=== PATIENT | male | born 2000 | race Caucasian/White ===

== ENCOUNTER 2022-06-30 15:43 | Emergency (ER) | payer MEDICAID, SELFPAY ==
[2022-06-30 15:45] VITALS: BP 144/83; PULSE 92; RESP 16; TEMP 37.1; O2SAT 99
--- NOTE | 2022-06-30 15:48 | DI.RAD.S_ITS ---
PROCEDURE: XR ELBOW RT MIN 3V INDICATIONS: fall, swelling TECHNIQUE: 3 views of the elbow were acquired. COMPARISON: None. FINDINGS: Bones: There is a fracture involving the proximal right ulna with distraction of the olecranon process. Radiocapitellar articulation is maintained. No suspicious osseous lesion. Soft tissues: Small elbow joint effusion. No suspicious soft tissue calcifications. Moderate overlying soft tissue swelling of the posterior elbow. Concurrent olecranon bursitis not excluded. IMPRESSION: Transverse fracture of the proximal right ulna with intra-articular extension to the humeral ulnar joint. Moderate overlying soft tissue swelling and small joint effusion. Dictated by: Randy Baig M.D. on 06/30/2022 at 16:36 Approved by: Randy Baig M.D. on 06/30/2022 at 16:38
[2022-06-30 16:18] VITALS: BMI 26.4
--- NOTE | 2022-06-30 16:18 | ED_ITS ---
HPI - Extremity Injury (Upper) <WILLA Abbasi - Last Filed: 06/30/22 18:15> General Chief Complaint: Extremity Injury, Upper Stated Complaint: R elbow inj Time Seen by Provider: 06/30/22 16:18 Source: patient Mode of arrival: Ambulatory History of Present Illness HPI narrative: This is a 22-year-old male presents emergency department after he jumped over a tennis net and states that he fell onto his left elbow and caused a lot of pain. He endorses some mild numbness and tingling is 4th and 5th digits. States that he is not able to fully extend his elbow medicine most painful movement but he is able to flex slightly. He has pain on the posterior aspect of his elbow over the olecranon process Related Data Previous Rx's Medication Instructions Recorded hydrocodone 5 mg-acetaminophen 325 1 tab PO TID PRN pain #14 tabs 06/30/22 mg tablet ibuprofen 600 mg tablet 600 mg PO Q6H PRN fever or pain 06/30/22 #30 tabs Allergies Allergy/AdvReac Type Severity Reaction Status Date / Time No Known Drug Allergies Allergy Verified 06/30/22 15:48 Review of Systems <WILLA Abbasi - Last Filed: 06/30/22 18:15> Review of Systems ROS Unobtainable: All systems reviewed & are unremarkable except as noted in HPI and below Patient History <WILLA Abbasi - Last Filed: 06/30/22 18:15> Social History Smoking Status: Current every day smoker Exam <WILLA Abbasi - Last Filed: 06/30/22 18:15> Narrative Exam Narrative: MSK: Patient is right arm has no tenderness along, tenderness over the olecranon process, grossly edematous, firm to palpation without fluctuance patient is not able to fully extend, he has brisk cap refill and 2+ radial pulse, warm fingertips. No proximal radial head tenderness, no wrist pain, no shoulder pain Initial Vital Signs Initial Vital Signs: Vital Signs Temperature 98.8 F 06/30/22 15:45 Pulse Rate 92 H 06/30/22 15:45 Respiratory Rate 16 06/30/22 15:45 Blood Pressure 144/83 H 06/30/22 15:45 Pulse Oximetry 99 06/30/22 15:45 Oxygen Delivery Method Room Air 06/30/22 15:45 <Red Nolasco DO - Last Filed: 07/01/22 07:09> Initial Vital Signs Initial Vital Signs: Vital Signs Temperature 98.8 F 06/30/22 15:45 Pulse Rate 92 H 06/30/22 15:45 Respiratory Rate 16 06/30/22 15:45 Blood Pressure 144/83 H 06/30/22 15:45 Pulse Oximetry 99 06/30/22 15:45 Oxygen Delivery Method Room Air 06/30/22 15:45 Procedures <WILLA Abbasi - Last Filed: 06/30/22 18:15> Orthopedic Splinting/Casting Injury #1: Side: right Upper Extremity Injury Location: elbow Upper Extremity Immobilizer: sling/shoulder immobilizer and posterior splint Post splinting neuro exam: intact Post splinting vascular exam: intact Placed by: Provider Course <WILLA Abbasi - Last Filed: 06/30/22 18:15> Orders Ordered: Discontinued Medications Hydrocodone Bitart/Acetaminophen (Hydrocodone/Acet 5/325 Tablet) 1 tab PO NOW ONE Stop: 06/30/22 16:27 Last Admin: 06/30/22 16:58 Dose: 1 tab Documented By: LIZZY Pendletonitracin (Bacitracin Oint 0.9 Gm Pckt) 1 applic TOP NOW ONE Stop: 06/30/22 16:18 Last Admin: 06/30/22 16:58 Dose: 1 applic Documented By: LIZZY Vital Signs Vital signs: Vital Signs - 8 hr 06/30/22 15:45 Temperature 98.8 F Pulse Rate 92 H Respiratory Rate 16 Blood Pressure 144/83 H Pulse Oximetry 99 Oxygen Delivery Method Room Air <Red Nolasco DO - Last Filed: 07/01/22 07:09> Orders Ordered: Discontinued Medications Hydrocodone Bitart/Acetaminophen (Hydrocodone/Acet 5/325 Tablet) 1 tab PO NOW ONE Stop: 06/30/22 16:27 Last Admin: 06/30/22 16:58 Dose: 1 tab Documented By: LIZZY Bacitracin (Bacitracin Oint 0.9 Gm Pckt) 1 applic TOP NOW ONE Stop: 06/30/22 16:18 Last Admin: 06/30/22 16:58 Dose: 1 applic Documented By: LIZZY Vital Signs Vital signs: Vital Signs - 8 hr 06/30/22 15:45 Temperature 98.8 F Pulse Rate 92 H Respiratory Rate 16 Blood Pressure 144/83 H Pulse Oximetry 99 Oxygen Delivery Method Room Air MDM - Extremity Injury (Upper) <Pattie Morse, [facility] - Last Filed: 06/30/22 18:15> Imaging Data Extremity x-ray #1: Radiologist's Impression: PROCEDURE:? XR ELBOW RT MIN 3V ? INDICATIONS:? fall, swelling ? TECHNIQUE:? 3 views of the elbow were acquired.? ? COMPARISON:? None. ? FINDINGS:? ? Bones:? There is a fracture involving the proximal right ulna with distraction of the olecranon process.? Radiocapitellar articulation is maintained.? No suspicious osseous lesion. ? Soft tissues:? Small elbow joint effusion.? No suspicious soft tissue calcifications.? Moderate overlying soft tissue swelling of the posterior elbow.? Concurrent olecranon bursitis not excluded. ? ? IMPRESSION:? Transverse fracture of the proximal right ulna with intra-articular extension to the humeral ulnar joint.? Moderate overlying soft tissue swelling and small joint effusion. ? ? Dictated by: Randy Baig M.D. on 06/30/2022 at 16:36 ? ? Approved by: Randy Baig M.D. on 06/30/2022 at 16:38 ? MDM Narrative Medical decision making narrative: Chief Complaint: Elbow injury Independent historian: Patient Multiple etiologies for patient's complaint considered including, but not limited to: Olecranon fracture, bursa rupture, tendon/ligamental injury, vascular injury, radius/ulna fracture, humeral head fracture I have independently reviewed the patient's vital signs and nursing notes as well as prior records if available. My interpretation of imaging: X-ray of the right elbow is positive for displaced olecranon fracture Consultations: Consulted with Dr. Olson from Orthopedics about patient's right olecranon fracture, he recommends posterior long-arm splint, follow-up in the clinic next week and call for an appointment tomorrow for follow-up. Patient is right arm was splinted in a long posterior splint, tolerated this well, CSM is intact distally afterwards. He is in partial flexion, wearing a sling, was comfortable at time of discharge. Pain control, and surgery for next week. Patient is self-pay for insurance and is uninsured, Dr. Olson is aware of this and surgery will occur at the hospital tomorrow. Dr. Olson call back to say that patient can have surgery tomorrow at 14:00 and this has been arranged through the operating room. There was an opening in the surgery schedule. Patient will arrived for check-in at 12 noon and be available off [facility] and in [facility] by 09:00 in case there was an earlier surgery time. Patient was prescribed hydrocodone and ibuprofen for his pain understands to be NPO after midnight. Social considerations that may affect disposition: none Questions are addressed and there is agreement with the plan and for follow-up. I consulted with the ED attending physician Dr. Nolasco as needed for higher level of care considerations and they were available for discussion and recommendations regarding plan of care and diagnostic testing. Patient is ap propriate for outpatient management. Discharge Plan Departure Patient Disposition: Home Clinical Impression: Closed olecranon fracture Qualifiers: Encounter type: initial encounter Laterality: right Qualified Code(s): S52.021A - Displaced fracture of olecranon process without intraarticular extension of right ulna, initial encounter for closed fracture Instructions: Elbow Fracture Activity Restrictions/Additional Instructions: *You have been diagnosed with a right olecranon fracture. Sorry for your injury, have called in hydrocodone for as needed pain relief at [facility]. Try and keep this elevated as best as able, ice it, there was an opening in the operating room tomorrow. Please do not eat any food after midnight, coming to town early tomorrow morning around 9, they may call you for an earlier check in but currently your check-in time to the hospitalist 12:00. Surgery is scheduled at 14:00, they will likely call you sooner than this and be ready for you. I wish you the best, sorry about your injury. *What to do: *Please continue to take your regular medications as directed. [x ] New medication prescriptions sent to your pharmacy: [[facility] ] [ ] New medication written as a paper prescription [ ] No new medications given *Please call and schedule follow up with your primary care provider in 2-3 days, at least for an update. Let them know you were seen in the Emergency Department for the above problem. We will electronically transmit a record of today's note if your PCP or specialist is in our system. *If you do not have a primary care provider please contact [phone] to establish care with one of the [facility] primary care providers. *Return to the Emergency Department for worsening symptoms, inability to keep liquids down, fever greater than 101F, chills, or other concerning symptom. Prescriptions: New hydrocodone-acetaminophen 5-325 mg tablet 1 tab PO TID PRN (Reason: pain) Qty: 14 0RF ibuprofen 600 mg tablet 600 mg PO Q6H PRN (Reason: fever or pain) Qty: 30 0RF Referrals: [facility] [Provider Group] Mariaa Olson MD [Physician] - (Call the office 07/01 and make an appointment for next week) Stand Alone Forms: Patient Portal/API <Red Nolasco DO - Last Filed: 07/01/22 07:09> [facility] I was immediately available in the department for consultation. This documentation has been reviewed and I agree with assessment and plan. Supervised by Red Nolasco DO
[2022-06-30] MEDS: HYDROCODONE/ACET 5/325 TABLET 1 TAB PO (16:58)
[2022-06-30] MEDS: BACITRACIN OINT 0.9 GM PCKT 1 APPLIC TOP (16:58)
== END 2022-06-30 17:08 | disposition home or self-care (01) ==
PROVIDERS: Emergency Provider Nurse Practitioner Critical Care Medicine
DX: S52.021A Displaced fracture of olecranon process without intraarticular extension of right ulna, initial encounter for closed fracture (principal); W18.30XA Fall on same level, unspecified, initial encounter
CPT/HCPCS: 29105; 73080; 99283; 99284

== ENCOUNTER 2022-07-01 11:50 | Day surgery (SDC) | payer MEDICAID, SELFPAY ==
[2022-07-01] VITALS (9 sets, daily range): BP systolic 111–140; BP diastolic 63–91; PULSE 64–86; RESP 15–19; TEMP 36.1–36.8; O2SAT 91–100; BMI 26.4
[2022-07-01] MEDS: LACTATED RINGERS 1,000 ML 42 ML IV ×2 (12:39→15:20)
[2022-07-01] MEDS: CEFAZOLIN 2 GM/100 ML PREMIX 100 ML IV (14:46)
--- NOTE | 2022-07-01 14:58 | PM.HP.1 ---
History of Present Illness History of Present Illness Date Patient Seen: 07/01/22 Time Patient Seen: 13:40 Date of Onset of Symptoms: 06/30/22 Chief complaint: Right ORIF Elbow Fx Narrative: Mr. Watters is a 22 yo M right hand dominant fell yesterday when jumping over a tennis net and landed on his right elbow. He was seen in the ED for inability to move his right elbow due to pain. Orthopedic service was consulted. Patient was scheduled urgently for ORIF today. [facility] Social History household members: family Smoking Status: Current every day smoker alcohol intake: current Meds Home Medications and Allergies Home Medications Medication Instructions Recorded Confirmed Type hydrocodone 5 mg-acetaminophen 325 1 tab PO TID PRN pain #14 tabs 06/30/22 07/01/22 Rx mg tablet ibuprofen 600 mg tablet 600 mg PO Q6H PRN fever or pain 06/30/22 07/01/22 Rx #30 tabs Allergies Allergy/AdvReac Type Severity Reaction Status Date / Time No Known Drug Allergies Allergy Verified 07/01/22 12:11 Review of Systems Review of Systems ROS: Yes All systems reviewed with the patient and are negative except as otherwise documented Exam Vital Signs (past 8 hours): - 07/01/22 12:22 Temperature 98.3 F Pulse Rate 86 Respiratory Rate 16 Blood Pressure 133/72 Pulse Oximetry 100 Oxygen Delivery Method Room Air Oxygen Delivery Method Room Air Extrem Other: right arm in splint, after splint removal, superficial abrasion over elbow was seen, no deep wound or deep compartment involvement. Neurovascularly intact. Unable to move elbow due to pain. Assessment & Plan Assessment & Plan narrative: Patient has closed right olecranon fx. I discussed treatment options. Risks for surgery include but not limited to bleeding, infection, nerve/blood vessel injury, need for additional procedure, elbow stiffness, hardware complications. Patient understands and would like to proceed with surgery. I scheduled him for ORIF right olecranon.
--- NOTE | 2022-07-01 15:13 | SUR.OPER ---
Lateral on a mcgee bag, head on pillow, gel axillary roll in place, bottom leg bent with gel pad under knee to foot, upper leg straight and supported with pillows. Upper arm supported by short padded arm rest, left arm secured on padded arm board. Safety belt at hip, tape over blanket lower legs.
[2022-07-01] MEDS: BUPIVACAINE 0.5% (PF) 30 ML, EPINEPHrine 0.15 MG INJ (15:20)
--- NOTE | 2022-07-01 17:13 | PM.OP.1 ---
Operative Date/Time/Diagnoses Date of procedure: 07/01/22 Time of procedure: 14:50 Pre-op diagnosis: 1. right olecranon fracture Post-op diagnosis: same Procedure & Clinicians Procedure: Right olecranon open reduction and internal fixation Same procedure as scheduled: Yes Indications: Mr. Watters sustained a traumatic right olecranon fracture that is grossly displaced. He was unable to move his right elbow due to pain. Surgeon: Mariaa Olson Click Yes if Unassisted: Yes Anesthesia Type: General Operative Notes Closure Type: primary Specimen(s): none sent Prosthetic devices, grafts, tissues, transplants, or devices: Kennedy [employer]hew Rolan olecranon plate Estimated Blood Loss (mL): 5 Blood products transfused: none Tourniquet time (min): 108 Procedure in detail: After patient was consented of risks and benefits of surgery, informed consent was obtained and placed in the chart. Patient was taken to the operating room. Prophylactic antibiotic was given less than half our prior to skin incision. A tourniquet was placed on patient's right upper arm. Patient's left arm was prepped and draped in sterile fashion. Time-out was performed at this time. Patient's left arm was elevated for 1 min the tourniquet was inflated to 250 mm Hg. Marking pen was used to brinda out a 6 in incision over the right olecranon. The incision was made from proximal to the olecranon to distal down the arm away from the ulnar aspect of the elbow to avoid the ulnar nerve. Using combination of scalpel and Metzenbaum scissor, the olecranon from its tip all the way down to the proximal 3rd of the shaft was exposed. Fracture hematoma was evacuated from the elbow joint along with fragments of bone along with cartilage. The distal humerus and the olecranon articulating surface was inspected there are small area of cartilaginous damage from the trauma. Small curette was used to remove any loose bone hematoma on the fracture surface along with fragments of cartilage. Next [id number] reduction clamp was used to reduce the fracture. And good bony apposition was able to be achieved using the [id number] clamp. The triceps attachment was split in order to expose the proximal tip of the olecranon for plate fixation. Periosteal elevator was used to remove the periosteum along the shaft of the ulna also for the purpose of plate fixation. A Kennedy [employer] Nephew olecranon plate was placed onto the olecranon along the shaft and visualized with portable C-arm. The fracture was well reduced in an anatomic position and the plate was in appropriate position for stabilization of the fracture. Distal shaft of the ulna was drilled and filled with fully-threaded cortical screw after measuring with depth gauge. The 3 cortical screws were used. Two fully-threaded cortical screws were placed from the tip of the olecranon down the shaft after drilling and measuring with depth gauge. A 55 mm and a 50 mm fully-threaded cortical screw were used for the proximal tip screw placement. After that all hardware was placed, the bone reduction clamp was reduced. The fracture was maintained its anatomic reduction and hardware was in appropriate position without any joint compromise. The final imaging was printed out and kept with patient's medical records. The wound was irrigated with sterile normal saline. Periosteum and muscle fascia was closed over the hardware using 0 Vicryl suture. Subcutaneous tissue was closed with 2-0 Vicryl. Skin was closed with 2-0 nylon suture. A sterile dressing was applied the patient's left elbow. The tourniquet was deflated at this time. Patient was woken up from anesthesia and transferred to recovery room in stable condition. Patient tolerated the procedure well and there were no complications estimated blood loss is 5 cc. Patient will be discharged today to home. Complications: none Post-operative Condition: stable Disposition: PACU Plan for aftercare: Discharge to home
[2022-07-01] MEDS: OXYCODONE/ACETAMINOPHEN 5/325 TABLET 1 TAB PO (17:52)
== END 2022-07-01 18:44 | disposition home or self-care (01) ==
PROVIDERS: Referring Provider Orthopaedic Surgery Orthopaedic Surgery of the Spine; Visit Provider Orthopaedic Surgery Orthopaedic Surgery of the Spine
PROC: 0RSL04Z Reposition Right Elbow Joint with Internal Fixation Device, Open Approach (ICD-10-PCS; CPT 24685; principal; 2022-07-01 14:00)
DX: S52.021A Displaced fracture of olecranon process without intraarticular extension of right ulna, initial encounter for closed fracture (principal); Y93.73 Activity, racquet and hand sports; W01.198A Fall on same level from slipping, tripping and stumbling with subsequent striking against other object, initial encounter; Y92.312 Tennis court as the place of occurrence of the external cause
CPT/HCPCS: 24685; J0171; J0690; J1100; J2250; J2405; J2704; J3010

== ENCOUNTER 2022-07-05 13:40 | Emergency (ER) | payer MEDICAID, SELFPAY ==
[2022-07-05 13:48] VITALS: BP 145/82; PULSE 68; RESP 16; TEMP 36.9; O2SAT 99; BMI 26.4
--- NOTE | 2022-07-05 15:56 | ED_ITS ---
HPI - Recheck/Abnormal Lab/Rx <Shon Zacarias PA-C - Last Filed: 07/05/22 16:02> General Chief Complaint: Recheck/Abnormal Lab/Rx Stated Complaint: post surgery, stitches popped, needs redone Time Seen by Provider: 07/05/22 14:23 Source: patient Mode of arrival: Ambulatory History of Present Illness HPI narrative: 22-year-old male status post a recent right elbow ORIF performed by Ortho Dr. Olson on 07/01/2022 presents to the ED for a wound recheck of the surgical incision. Patient noted that he was having some serosanguineous oozing from a particular spot in the surgical incision. Patient spoke with Dr. Gonzalez on the phone who recommended that he be evaluated in the ED. patient denies fever, chills, nausea, vomiting. Patient denies increased pain, swelling, warmth, redness at the site of the incision. Patient denies numbness, tingling, weakness. Related Data Previous Rx's Medication Instructions Recorded hydrocodone 5 mg-acetaminophen 325 1 tab PO TID PRN pain #14 tabs 06/30/22 mg tablet ibuprofen 600 mg tablet 600 mg PO Q6H PRN fever or pain 06/30/22 #30 tabs oxycodone 5 mg tablet 5 mg PO Q4H PRN pain #30 tabs 07/01/22 Allergies Allergy/AdvReac Type Severity Reaction Status Date / Time No Known Drug Allergies Allergy Verified 07/01/22 12:11 Review of Systems <Shon Zacarias PA-C - Last Filed: 07/05/22 16:02> Review of Systems ROS Unobtainable: All systems reviewed & are unremarkable except as noted in HPI and below Constitutional Constitutional: Denies chills, Denies fatigue, Denies fever(s), Denies frequent falls, Denies lethargy and Denies weakness Eyes Eyes: Denies change in vision, Denies eye discharge, Denies irritation and Denies loss of vision ENT Ears, Nose, Mouth, and Throat: Denies change in voice, Denies dizziness, Denies neck pain, Denies sore throat and Denies throat swelling Cardiovascular Cardiovascular: Denies chest pain, Denies irregular heart rhythm, Denies lightheadedness, Denies palpitations, Denies dyspnea, Denies dyspnea on exertion and Denies orthopnea Respiratory Respiratory: Denies cough, Denies dyspnea, Denies dyspnea on exertion and Denies wheezing Gastrointestinal Gastrointestinal: Denies abdominal pain, Denies change in bowel habits, Denies diarrhea, Denies nausea and Denies vomiting Genitourinary Genitourinary: Denies hematuria, Denies flank pain, Denies urinary incontinence and Denies urinary urgency Musculoskeletal Musculoskeletal: Denies back pain, Denies muscle weakness, Denies neck pain, Denies numbness and Denies tingling Integumentary/Breasts Skin/Breast: Denies pruritus, Denies erythema, Denies rash and Denies wounds Comments: Discharge from surgical incision on right elbow Neurologic Neurologic: Denies behavioral changes, Denies confusion, Denies dizziness, Denies frequent falls, Denies loss of vision, Denies numbness, Denies tingling and Denies weakness Psychiatric Psychiatric: Denies anxiety, Denies behavioral changes, Denies confusion, Denies depression, Denies homicidal ideation and Denies suicidal ideation Endocrine Endocrine: Denies fatigue, Denies flushing and Denies palpitations Hematologic/Lymphatic Hematologic/Lymphatic: Denies easy bruising Allergic/Immunologic Allergic/Immunologic: Denies urticaria, Denies throat swelling and Denies wheezing Patient History <Shon Zacarias PA-C - Last Filed: 07/05/22 16:02> Social History household members: family Smoking Status: Current every day smoker alcohol intake: current Smoking Status: Current every day smoker alcohol intake frequency: holidays/special occasions only Substance Use Type: marijuana Exam <Shon Zacarias PA-C - Last Filed: 07/05/22 16:02> Narrative Exam Narrative: Const General:?cooperative, healthy appearing and comfortable [facility] Head:?normal to inspection Ears:?hearing grossly normal bilaterally Nose:?external nose normal Face and sinus:?normal facial exam and sinuses nontender Mouth:?oral mucosae normal Throat:?posterior oropharynx normal Eyes General:?appearance normal, both eyes and all related structures Neck Neck:?normal visual inspection and no lymphadenopathy noted Resp Effort & Inspection:?normal respiratory effort Auscultation:?clear to auscultation bilaterally Cardio Rate:?regular rate Rhythm:?regular rhythm Integumentary There is a small amount of serosanguineous oozing between 2 sutures that are spaced a little farther apart than the other sutures. Surgical incision appears to be otherwise healing well with no signs of infection including erythema, warmth, swelling, tenderness to touch. There is good range of motion. Strength and sensation is intact.Patient appears well neurovascularly intact. Neuro General:?patient alert, patient awake and patient oriented x3 Initial Vital Signs Initial Vital Signs: Vital Signs Temperature 98.4 F 07/05/22 13:48 Pulse Rate 68 07/05/22 13:48 Respiratory Rate 16 07/05/22 13:48 Blood Pressure 145/82 H 07/05/22 13:48 Pulse Oximetry 99 07/05/22 13:48 Oxygen Delivery Method Room Air 07/05/22 13:48 <Michael Higginbotham MD - Last Filed: 07/11/22 14:37> Initial Vital Signs Initial Vital Signs: Vital Signs Temperature 98.4 F 07/05/22 13:48 Pulse Rate 68 07/05/22 13:48 Respiratory Rate 16 07/05/22 13:48 Blood Pressure 145/82 H 07/05/22 13:48 Pulse Oximetry 99 07/05/22 13:48 Oxygen Delivery Method Room Air 07/05/22 13:48 Course <Shon Zacarias PA-C - Last Filed: 07/05/22 16:02> Vital Signs Vital signs: Vital Signs - 8 hr 07/05/22 13:48 Temperature 98.4 F Pulse Rate 68 Respiratory Rate 16 Blood Pressure 145/82 H Pulse Oximetry 99 Oxygen Delivery Method Room Air <Michael Higginbotham MD - Last Filed: 07/11/22 14:37> Vital Signs Vital signs: Vital Signs - 8 hr 07/05/22 13:48 Temperature 98.4 F Pulse Rate 68 Respiratory Rate 16 Blood Pressure 145/82 H Pulse Oximetry 99 Oxygen Delivery Method Room Air MDM - Recheck/Abnormal Lab/Rx <Shon Zacarias PA-C - Last Filed: 07/05/22 16:02> MDM Narrative Medical decision making narrative: 22-year-old male status post a recent right elbow ORIF performed by Liat Olson on 07/01/2022 presents to the ED for a wound recheck of the surgical incision. There appears to be a small amount of serosanguineous oozing between 2 sutures that appear to be a little bit more further apart than the other sutures. The wound appears to be healing well with no signs of infection including erythema, warmth, swelling, pain. Reassured patient that he is having a little bit of puckering between those 2 sutures which is causing it to ooze. Counseled patient on signs to watch out for infection. Patient verbalized understanding and agree to follow-up with Dr. Olson as scheduld and also return to the ED if he saw any signs of infection. Medical records reviewed: Yes Discharge Plan Departure Patient Disposition: Home Clinical Impression: Encounter for wound re-check Instructions: How to Care for a Surgical Wound-Stitches Activity Restrictions/Additional Instructions: You were evaluated in the ED today for a wound recheck of your surgical incision. Your incision appears to be healing well without signs of infection. There is 1 area of puckering in the skin where you are seeing some discharge, however this does not appear to be infectious and can be a normal process of a surgical wound healing. Please follow-up with your orthopedic surgeon Dr. Olson as scheduled. Return to the ED if you note any signs of infection including worsening pain, redness, swelling, warmth, pus. Please keep the wound dressed and covered to prevent any infections. Prescriptions: No Action hydrocodone-acetaminophen 5-325 mg tablet 1 tab PO TID PRN (Reason: pain) Qty: 14 0RF ibuprofen 600 mg tablet 600 mg PO Q6H PRN (Reason: fever or pain) Qty: 30 0RF oxycodone 5 mg tablet 5 mg PO Q4H PRN (Reason: pain) Qty: 30 0RF Stand Alone Forms: Patient Portal/API <Michael Higginbotham MD - Last Filed: 07/11/22 14:37> [facility] Attestation: I was immediately available in the department for consultation. ?This documentation has been reviewed and I agree with assessment and plan. Supervised by Michael Higginbotham MD
== END 2022-07-05 14:37 | disposition home or self-care (01) ==
PROVIDERS: Emergency Provider Student in an Organized Health Care Education/Training Program
DX: Z48.02 Encounter for removal of sutures (principal)
CPT/HCPCS: 99281